=== PATIENT | male | born 1955 ===

== ENCOUNTER 2017-09-28 07:12 | Emergency (ER) | payer BC ==
[2017-09-28 07:12] VITALS: BMI 33.8
--- NOTE | 2017-09-28 07:28 | C.PDOC ---
History Of Present Illness 61 year old male presents to the ED c/o chronic lower back pain radiating down to his B/L thighs and legs. Patient reports he had back surgery on 2011 and has been on pain management since. Patient states that for the last 2 days pain worsened, took last percocet at 07:00 today but pain came back for evaluation. Patient has an appointment for pain management doctor tomorrow. Patient denies weakness, numbness, saddle anesthesia, bowel incontinence, urinary incontinence. Time Seen by Provider: 09/28/17 07:25 Chief Complaint (Nursing): Back Pain History Per: Patient History/Exam Limitations: no limitations Onset/Duration Of Symptoms: Days Current Symptoms Are (Timing): Still Present Quality Of Discomfort: "Pain" Previous Symptoms: Back Pain Associated Symptoms: None Exacerbating Factor(s): Movement Recent travel outside of the [place]: No Additional History Per: Patient Past Medical History Reviewed: Historical Data, Nursing Documentation, Vital Signs Vital Signs: Last Vital Signs Temp 97.5 F L 09/28/17 09:20 Pulse 91 H 09/28/17 09:20 Resp 16 09/28/17 09:20 BP 107/74 09/28/17 09:20 Pulse Ox 98 09/28/17 09:27 - Medical History PMH: Asthma, Back Problems, HTN Surgical History: No Surg Hx Family History: States: Unknown Family Hx - Social History Hx Alcohol Use: No Hx Substance Use: No - Immunization History Hx Tetanus Toxoid Vaccination: No Hx Influenza Vaccination: No Hx Pneumococcal Vaccination: No Review Of Systems Constitutional: Negative for: Fever, Chills Cardiovascular: Negative for: Chest Pain Respiratory: Negative for: Shortness of Breath Gastrointestinal: Negative for: Nausea, Vomiting, Abdominal Pain Genitourinary: Negative for: Dysuria, Incontinence Musculoskeletal: Positive for: Back Pain, Leg Pain Skin: Negative for: Rash Neurological: Negative for: Weakness, Numbness Physical Exam - Physical Exam Appears: Non-toxic, No Acute Distress Skin: Normal Color, Warm, Dry Head: Atraumatic, Normacephalic Eye(s): bilateral: Normal Inspection Nose: No Discharge Oral Mucosa: Moist Neck: Normal ROM, Supple Chest: Symmetrical Cardiovascular: Rhythm Regular, No Murmur Respiratory: Normal Breath Sounds, No Rales, No Rhonchi, No Wheezing Gastrointestinal/Abdominal: Soft, No Tenderness, No Guarding, No Rebound Back: Other (Lower back tenderness) Extremity: Normal ROM, No Tenderness, Capillary Refill (< 2 seconds), No Swelling Pulses: Left Dorsalis Pedis: Normal, Right Dorsalis Pedis: Normal Neurological/Psych: Oriented x3, Normal Motor, Normal Sensation Gait: Steady ED Course And Treatment O2 Sat by Pulse Oximetry: 98 (On RA) Pulse Ox Interpretation: Normal Medical Decision Making Medical Decision Making: Impression: chronic lower back pain Plan: * Dilaudid 2 mg IM * Lidoderm 1 ea TD * Toradol 60 mg IM Patient felt better after pain medications patient was D/C with no prescriptions. Disposition - Disposition Disposition: HOME/ ROUTINE Disposition Time: 09:16 Condition: STABLE Additional Instructions: Follow up with PMD and military technology specialist within 1-2 days. Return to ED if feel worse. Instructions: Low Back Pain in Adults Forms: [facility] (Turkmen) - Clinical Impression Clinical Impression: Low back pain - PA / MAJOR GENERAL / Resident Statement MD/DO has reviewed & agrees with the documentation as recorded. - Scribe Statement The provider has reviewed the documentation as recorded by the Scribjasmine Vasquez All medical record entries made by the Karlosibjasmine were at my direction and personally dictated by me. I have reviewed the chart and agree that the record accurately reflects my personal performance of the history, physical exam, medical decision making, and the department course for this patient. I have also personally directed, reviewed, and agree with the discharge instructions and disposition.
[2017-09-28] MEDS ORDERED: Lidocaine 5% Patch TD STA (07:47)
[2017-09-28] MEDS ORDERED: Lidocaine 5% Patch TD ONE (08:02)
[2017-09-28 09:21] VITALS: BP 107/74; PULSE 91; RESP 16; TEMP 97.5
[2017-09-28 09:23] VITALS: O2SAT 98
== END 2017-09-28 09:35 | disposition home or self-care (01) ==
LOC: C.ER 07:12
DX: M54.5 Low back pain (principal)
CPT/HCPCS: 96372; 99283; J1170; J1885

== ENCOUNTER 2018-09-08 11:25 | Outpatient (CLI) | payer BC | END 2018-09-08 11:26 | disposition home or self-care (01) | LOC: C.LAB 11:25 ==

== ENCOUNTER 2018-09-17 12:52 | Emergency (ER) | payer BC ==
[2018-09-17 12:52] VITALS: BMI 33.8
[2018-09-17 13:02] VITALS: RESP 16
[2018-09-17] MEDS ORDERED: Lidocaine 5% Patch TD STA (13:36)
[2018-09-17] MEDS ORDERED: Lidocaine 5% Patch TD ONE (13:47)
--- NOTE | 2018-09-17 14:07 | C.PDOC ---
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 He denies any falls, injuries, dysuria, hematuria, or fever. Time Seen by Provider: 09/17/18 13:05 Chief Complaint (Nursing): Back Pain History Per: Patient History/Exam Limitations: no limitations Onset/Duration Of Symptoms: Days (1) Current Symptoms Are (Timing): Still Present Quality Of Discomfort: "Pain" Recent travel outside of the [place]: No Additional History Per: Patient Past Medical History Reviewed: Historical Data, Nursing Documentation, Vital Signs Vital Signs: Last Vital Signs Temp 97.7 F 09/17/18 13:00 Pulse 86 09/17/18 13:00 Resp 16 09/17/18 13:00 BP 159/99 H 09/17/18 13:00 Pulse Ox 99 09/17/18 13:00 - Medical History PMH: Asthma, Back Problems, HTN Surgical History: No Surg Hx Family History: States: Unknown Family Hx - Social History Hx Alcohol Use: No Hx Substance Use: No - Immunization History Hx Tetanus Toxoid Vaccination: No Hx Influenza Vaccination: No Hx Pneumococcal Vaccination: No Review Of Systems Constitutional: Negative for: Fever Genitourinary: Negative for: Dysuria, Hematuria Musculoskeletal: Positive for: Back Pain (low back pain radiating down leg ) Physical Exam - Physical Exam Appears: Non-toxic, Other (moderate pain, ambulating with cane ) Skin: Normal Color, Warm, Dry Head: Atraumatic, Normacephalic Chest: Symmetrical, No Deformity Cardiovascular: Rhythm Regular, No Murmur Respiratory: Normal Breath Sounds, No Rales, No Rhonchi, No Wheezing Gastrointestinal/Abdominal: Soft, No Tenderness Back: No CVA Tenderness, Paraspinal Tenderness (right lumbar ), No Other (midline tenderness) Neurological/Psych: Oriented x3, Normal Sensation (legs ) ED Course And Treatment O2 Sat by Pulse Oximetry: 99 (on RA) Pulse Ox Interpretation: Normal Progress Note: Plan: Flexeril 10mg PO. Toradol 60mg IM. Lidoderm 1ea TD. Prednisone 60mg PO Disposition Counseled Patient/Family Regarding: Diagnosis, Need For Followup, Rx Given - Disposition Referrals: [facility] [Outside] Disposition: HOME/ ROUTINE Disposition Time: 14:10 Condition: STABLE Additional Instructions: FOLLOW UP WITH YOUR DOCTOR/CLINIC IN 1-2 DAYS USE MEDICATION DIRECTED RETURN TO EMERGENCY ROOM IF YOUR SYMPTOMS BECOME WORSE SEGUIR CON WILCOX MDICO / KATHLEENA EN 1-2 PINTO UTILICE MEDICAMENTOS YOAN SE DIRIGE VUELVA A LA JULIANN DE EMERGENCIA SI [place] S[place] SE HACEN [place] Prescriptions: Cyclobenzaprine [Flexeril] 10 mg PO BID PRN #15 tab PRN Reason: Muscle Spasm Naproxen 375 mg PO BID PRN #20 tablet PRN Reason: pain predniSONE [predniSONE Tab] 40 mg PO DAILY #6 tab Instructions: Low Back Pain (DC), Sciatica (DC) Forms: [employer] (Lebanese) Print Language: TAJIK - Clinical Impression Clinical Impression: Low back strain, Sciatica - Scribe Statement The provider has reviewed the documentation as recorded by the Jahaira French All medical record entries made by the Karlosibjasmine were at my direction and personally dictated by me. I have reviewed the chart and agree that the record accurately reflects my personal performance of the history, physical exam, medical decision making, and the department course for this patient. I have also personally directed, reviewed, and agree with the discharge instructions and disposition.
[2018-09-17 14:22] VITALS: BP 142/90; PULSE 90; TEMP 98.7
[2018-09-17 19:08] VITALS: O2SAT 99
== END 2018-09-17 14:22 | disposition home or self-care (01) ==
LOC: C.ER 12:52
DX: S39.012A Strain of muscle, fascia and tendon of lower back, initial encounter (principal); X58.XXXA Exposure to other specified factors, initial encounter; M54.31 Sciatica, right side
CPT/HCPCS: 96372; 99284; J1885